=== PATIENT | female | born 1975 | race African-American/Black ===

== ENCOUNTER 2018-03-18 14:02 | Emergency (ER) | payer OTHER ==
[~2018-03-18] VITALS: Ht 162.6 cm; Wt 85.3 kg
[~2018-03-18 14:02] MED LIST: KEFLEX500 M1 PO; VENTOLIN HFA 1818 GM INH
[2018-03-18] MEDS ORDERED: IBUPROFEN 400400 M2 PO ×2 (14:47→15:04)
[2018-03-18 15:39] VITALS: BP 120/84
== END 2018-03-18 15:40 | disposition home or self-care (01) ==
LOC: ER 14:02
DX: S93.401A Sprain of unspecified ligament of right ankle, initial encounter (principal); J45.909 Unspecified asthma, uncomplicated; X50.1XXA Overexertion from prolonged static or awkward postures, initial encounter; Y93.89 Activity, other specified; Y92.89 Other specified places as the place of occurrence of the external cause; Y99.8 Other external cause status

== ENCOUNTER 2018-05-05 07:26 | Emergency (ER) | payer OTHER ==
[~2018-05-05] VITALS: Ht 157.5 cm; Wt 81.7 kg
[~2018-05-05 07:26] MED LIST changes: +IBUPROFEN 400400 M2 PO
[2018-05-05] MEDS ORDERED: CLONAZEPAM 1 MG1 M1 PO (07:39)
[2018-05-05 08:25] LABS: ABSOLUTE NEUTROPHILS 7.8 thou/uL (1.4-8.2); BASOPHILS 0.6 % (0.0-2.0); HEMATOCRIT 36.9 % (37.0-47.0); HEMOGLOBIN 11.8 gm/dL (12.0-15.0); LYMPHOCYTES 26.4 % (24.0-44.0); MCH 25.9 pg (26.0-34.0); MCHC 31.9 g/dL (28.0-37.0); MCV 81.2 fL (80.0-100.0); PLATELET COUNT 360 thou/uL (150-400); RBC 4.55 mil/uL (4.20-5.00); RDW 14.1 % (10.5-14.5); WBC 12.2 thou/uL (4.0-11.0)
[2018-05-05 08:33] LABS: CALCIUM 9.1 mg/dL (8.5-10.1); CREATININE 0.8 mg/dL (0.6-1.0); POTASSIUM 3.8 mmol/L (3.5-5.1)
[2018-05-05] MEDS ORDERED: VENTOLIN HFA 1818 GM INH (09:00)
[2018-05-05] MEDS ORDERED: PREDNISONE 20 M20 MG PO (09:00)
[2018-05-05 09:20] VITALS: BP 115/64
== END 2018-05-05 09:20 | disposition home or self-care (01) ==
LOC: ER 07:26
PROVIDERS: Student in an Organized Health Care Education/Training Program
DX: J45.901 Unspecified asthma with (acute) exacerbation (principal); F41.9 Anxiety disorder, unspecified

== ENCOUNTER 2018-11-27 17:59 | Emergency (ER) | payer OTHER ==
[~2018-11-27] VITALS: Ht 157.5 cm; Wt 63.5 kg
[~2018-11-27 17:59] MED LIST changes: +CLONAZEPAM 1 MG1 M1 PO; +PREDNISONE 20 M20 MG PO
[2018-11-27 19:30] LABS: URINE BILIRUBIN NEGATIVE (Negative); URINE BLOOD TRACE (Negative); URINE CLARITY CLEAR; URINE COLOR YELLOW; URINE GLUCOSE-RANDOM* NEGATIVE (Negative); URINE KETONES NEGATIVE (Negative); URINE LEUKOCYTES-REFLEX 3+ (Negative); URINE NITRITE-REFLEX NEGATIVE (Negative); URINE PROTEIN (DIPSTICK) NEGATIVE (Negative); URINE SPECIFIC GRAVITY <= 1.005 (1.005-1.035); URINE UROBILINOGEN 0.2 E.U./dl (0.2-1.0)
[2018-11-27 19:40] LABS: CASTS None Seen /LPF (None Seen); CRYSTALS None Seen /LPF (None Seen); SQUAMOUS >10 Many /LPF (0-3); URINE RBC 0-2 Rare /HPF (0-2)
[2018-11-27] MEDS ORDERED: ATIVAN0.5 MG PO (19:45)
[2018-11-27] MEDS ORDERED: KEFLEX500 M1 PO (19:45)
[2018-11-27 20:01] VITALS: BP 117/68
--- NOTE | 2018-11-28 09:51 | EKG ---
[place] [address] [facility] [place] [employer] [place] [address] ELECTROCARDIOGRAM REPORT Name: EPIFANIO PEARSON [id number] ������������������ Admission: 11/27/18 ������������������ Attend Phys: Discharge: 11/27/18 ������������������ Date of : 73 Report #: [id number] ����������������������������������������������������������������� [id number] THIS REPORT FOR: //name// [facility] ED Test Date: 2018-11-27 Test Time: 19:26:49 Pat Name: EPIFANIO PEARSON Department: Room: Gender: F Medical Cost Consultant: EMIL : 1975 Requested By: Eliana Dugan Order Number: [id number] MD: Casey Lombardo Measurements Intervals [place] Rate: 99 P: 58 MD: 134 QRS: -38 QRSD: 84 T: 18 QT: 354 QTc: 455 Interpretive Statements Sinus rhythm Left axis deviation Poor R wave progression No previous ECG available for comparison Electronically Signed On 11-28-2018 9:51:10 CDT by Casey Lombardo [email or web address] ��������������������������������������������� <ELECTRONICALLY SIGNED> ���������������������������������������� By: Casey Lombardo MD, [facility] ��������������������������������������������� 11/28/18 0951 1926 25 Casey Lombardo MD, FACC /EPI
== END 2018-11-27 20:09 | disposition home or self-care (01) ==
LOC: ER 17:59
PROVIDERS: Emergency Medicine
DX: N39.0 Urinary tract infection, site not specified (principal); F41.9 Anxiety disorder, unspecified; J45.909 Unspecified asthma, uncomplicated

== ENCOUNTER 2019-06-28 01:58 | Emergency (ER) | payer OTHER ==
[~2019-06-28] VITALS: Ht 157.5 cm; Wt 91.2 kg
--- NOTE | ~2019-06-28 | EKG ---
[facility] [address] [place] [address] ELECTROCARDIOGRAM REPORT Name: EPIFANIO PEARSON Room #: [facility] M.R.#: [id number] Admission: Attend Phys: Discharge: Date of : 73 Report #: [id number] THIS REPORT FOR: cc: JASON Hair family physician/PCP Oliva Baptiste MD ~ THIS REPORT FOR: //name// [facility] ED Test Date: 2019-06-28 Test Time: 02:14:54 Pat Name: EPIFANIO PEARSON Department: Room: Gender: F Talent Coordinator: arin : 1975 Requested By: Divya Barber Order Number: [id number] MD: Measurements Intervals [place] Rate: 77 P: 51 CT: 136 QRS: -36 QRSD: 84 T: 29 QT: 385 QTc: 436 Interpretive Statements Sinus rhythm Left axis deviation Compared to ECG 11/27/2018 19:26:49 Poor R-wave progression no longer present [email or web address] By: 3 3 Oliva Baptiste MD /EPI
[~2019-06-28 01:58] MED LIST changes: +ATIVAN0.5 MG PO
[2019-06-28 02:38] LABS: ABSOLUTE NEUTROPHILS 5.7 thou/uL (1.4-8.2); BASOPHILS 0.5 % (0.0-2.0); EOSINOPHILS 2.6 % (0.0-3.0); HEMOGLOBIN 11.5 gm/dL (12.0-15.0); LYMPHOCYTES 38.4 % (24.0-44.0); MCH 24.9 pg (26.0-34.0); MCHC 30.9 g/dL (28.0-37.0); MCV 80.6 fL (80.0-100.0); MONOCYTES 6.4 % (1.0-8.0); PLATELET COUNT 373 thou/uL (150-400); POLYS 52.1 % (36.0-66.0); RBC 4.59 mil/uL (4.20-5.00)
[2019-06-28 02:55] LABS: ANION GAP 11 mmol/L (7-16); BUN 10 mg/dL (7-18); CALCIUM 8.9 mg/dL (8.5-10.1); CHLORIDE 103 mmol/L (98-107); CO2 24 mmol/L (21-32); CREATININE 0.7 mg/dL (0.6-1.0); GLUCOSE 109 mg/dL (74-106); SODIUM 138 mmol/L (136-145)
[2019-06-28 03:05] LABS: ALBUMIN 3.3 g/dL (3.4-5.0); SGOT 14 U/L (15-37); SGPT 16 U/L (30-65); TOTAL BILIRUBIN 0.3 mg/dL (<0.1-1.0); TOTAL PROTEIN 7.4 g/dL (6.4-8.2); TROPONIN-I <0.06 ng/mL (<0.06)
[2019-06-28] MEDS ORDERED: LORAZEPAM 0.50.5 MG PO (03:13)
[2019-06-28 03:30] VITALS: BP 123/75
== END 2019-06-28 03:32 | disposition home or self-care (01) ==
LOC: ER 01:58
PROVIDERS: Student in an Organized Health Care Education/Training Program
DX: F41.9 Anxiety disorder, unspecified (principal); E66.9 Obesity, unspecified; J45.909 Unspecified asthma, uncomplicated; Z68.36 Body mass index [BMI] 36.0-36.9, adult; Z98.51 Tubal ligation status

== ENCOUNTER 2019-12-25 02:11 | Emergency (ER) | payer OTHER ==
[~2019-12-25] VITALS: Ht 165.1 cm; Wt 90.7 kg
[~2019-12-25 02:11] MED LIST changes: +LORAZEPAM 0.50.5 MG PO
[2019-12-25] MEDS ORDERED: ASHWAGANDHA PO (02:21)
[2019-12-25] MEDS ORDERED: HYDROXYZINE HCL50 MG PO (03:37)
[2019-12-25 04:04] VITALS: BP 112/73
--- NOTE | 2019-12-26 09:04 | EKG ---
[facility] [place] [address] ELECTROCARDIOGRAM REPORT Name: EPIFANIO PEREZ Room #: [facility].#: [id number] Admission: 12/25/19 Attend Phys: Discharge: 12/25/19 Date of : 73 Report #: [id number] THIS REPORT FOR: cc: NO FAMILY PHYSICIAN or PCP NO FAMILY PHYSICIAN or PCP Casey Lombardo MD [facility] ~ THIS REPORT FOR: //name// [facility] ED Test Date: 2019-12-25 Test Time: 02:46:53 Pat Name: EPIFANIO VALDES Department: Room: Gender: F Medical Records Manager: : 1975 Requested By: Kojo Walden Order Number: [id number] MD: Casey Lombardo Measurements Intervals [place] Rate: 76 P: 65 WI: 140 QRS: -35 QRSD: 80 T: 6 QT: 382 QTc: 430 Interpretive Statements Sinus rhythm Left axis deviation Poor R wave progression Compared to ECG 06/28/2019 02:14:54 No significant changes Electronically Signed On 12-26-2019 9:04:35 CDT by Casey Lombardo [email or web address] <ELECTRONICALLY SIGNED> By: Casey Lombardo MD, [facility] 12/26/19 0904 0246 0246 Casey Lombardo MD, [facility] /EPI
== END 2019-12-25 04:05 | disposition home or self-care (01) ==
LOC: ER 02:11
DX: F41.0 Panic disorder [episodic paroxysmal anxiety] (principal); F43.0 Acute stress reaction; J45.909 Unspecified asthma, uncomplicated; Z98.51 Tubal ligation status; Z79.899 Other long term (current) drug therapy